=== PATIENT | female | born 1980 | race Caucasian/White ===

== ENCOUNTER → 2018-11-01 | Outpatient (CLI) | payer MEDICARE, OTHER ==
--- NOTE | 2018-11-01 11:31 | US ---
EXAMINATION TYPE: US abdomen complete DATE OF EXAM: 11/01/2018 COMPARISON: NONE CLINICAL HISTORY: R10.84 generalized abdominal pain. Intermittent abdomen pain x couple years EXAM MEASUREMENTS: Liver Length: 17.7 cm Gallbladder Wall: 0.2 cm CBD: 0.7 cm Spleen: 9.5 cm Right Kidney: 11.4 x 4.8 x 4.8 cm Left Kidney: 11.0 x 4.4 x 4.7 cm Pancreas: wnl Liver: measures in upper limits of normal Gallbladder: wnl Evidence for sonographic Severino's sign: no CBD: dilated Spleen: wnl Right Kidney: wnl Left Kidney: wnl Upper IVC: wnl Abd Aorta: wnl Scanned abdomen left of midline: small intramuscular vessel. No suspicious abnormality. The liver is homogenous. The intrahepatic portion of the IVC and proximal abdominal aorta are within normal limits. There is no evidence of cholelithiasis. Common bile duct is unremarkable. The visu alized portions of the pancreas are homogenous. The spleen is unremarkable. Kidneys are symmetric a nd free of hydronephrosis. No renal lesions are seen. IMPRESSION: Unremarkable abdominal ultrasound.
--- NOTE | 2018-11-01 11:41 | US ---
EXAMINATION TYPE: US thyroid st tissue head/neck DATE OF EXAM: 11/01/2018 COMPARISON: NONE CLINICAL HISTORY: R22.0 Swelling/Mass/palpable abnormality head/neck. Neck swelling, difficulty swall owing GLAND SIZE: Right Lobe: 5.7 x 1.9 x 2.1 cm Overall Parenchyma: mildly heterogeneous Left Lobe: 5.5 x 2.0 x 1.8 cm Overall Parenchyma: mildly heterogeneous Isthmus Thickness: 0.4 cm NODULES RIGHT: # of nodules measured on right: 0 LEFT: # of nodules measured on left: 0 ISTHMUS: # of nodules measured in the isthmus: 0 Bilateral neck scanned, no evidence of lymphadenopathy. IMPRESSION: Enlarged mildly heterogeneous gland without any definite nodules seen at this time.
== END | disposition home or self-care (01) ==
LOC: RADUSWWP 09:33 → MERGE 09:40
PROVIDERS: ATTEND Internal Medicine
DX: E04.9 Nontoxic goiter, unspecified (principal); R10.84 Generalized abdominal pain; Z88.0 Allergy status to penicillin; Z88.1 Allergy status to other antibiotic agents
CPT/HCPCS: 76536; 76700

== ENCOUNTER → 2018-11-06 | Outpatient (CLI) | payer MEDICARE | END | disposition home or self-care (01) | LOC: RADMRIMAIN 13:09 → MERGE 13:15 | PROVIDERS: ATTEND Pain Medicine Interventional Pain Medicine | DX: Z53.9 Procedure and treatment not carried out, unspecified reason (principal) ==

== ENCOUNTER → 2019-08-01 | Outpatient (CLI) | payer MEDICARE ==
--- NOTE | 2019-08-01 14:20 | MM ---
Reason for exam: clinical finding. Last mammogram was performed 2 years and 10 months ago. History: Family history of breast cancer in grandmother. Took hormonal contraceptives for 14 years beginning at age 24. Indicated problem(s): lump or thickening in both breasts. Physical Findings: Nurse did not find any significant physical abnormalities on exam. MG 3D Diag Mammo W/Cad DANITA Bilateral CC and MLO view(s) were taken. Prior study comparison: October 05, 2016, bilateral MG 3d screening mammo w/cad. The breast tissue is heterogeneously dense. This may lower the sensitivity of mammography. No suspicious abnormality. No significant new findings when compared with previous films. These results were verbally communicated with the patient and result sheet given to the patient on 08/01/19. ASSESSMENT: Incomplete: need additional imaging evaluation, BI-RAD 0 RECOMMENDATION: Ultrasound of the left breast. (upper outer quadrant)
--- NOTE | 2019-08-01 14:22 | USB ---
Reason for exam: additional evaluation requested from abnormal screening. History: Family history of breast cancer in grandmother. Took hormonal contraceptives for 14 years beginning at age 24. US Breast Limited LT Technologist: Alondra Mcpherson Left limited breast ultrasound including focal area of concern, retroareolar and axilla demonstrates several cystic lesions measuring 0.4 x 0.4 x 0.2cm at 1 o'clock, a 0.5 x 0.5 x 0.4cm at 1 o'clock, 0.3 x 0.3 x 0.2cm at 2 o'clock and 0.5 x 0.6 x 0.5cm at 2 o'clock. These results were verbally communicated with the patient and result sheet given to the patient on 08/01/19. ASSESSMENT: Benign, BI-RAD 2 RECOMMENDATION: Routine screening mammogram of both breasts in 1 year.
== END | disposition home or self-care (01) ==
LOC: RADMAMWWP 07:43
PROVIDERS: ATTEND Internal Medicine
DX: R92.8 Other abnormal and inconclusive findings on diagnostic imaging of breast (principal); N63.0 Unspecified lump in unspecified breast
CPT/HCPCS: 77066; 76642; G0279; 77062

== ENCOUNTER → 2020-11-21 | Outpatient (CLI) | payer MEDICARE ==
--- NOTE | 2020-11-25 10:06 | MM ---
Reason for exam: screening (asymptomatic). Last mammogram was performed 1 year and 4 months ago. History: Family history of breast cancer in grandmother. Took hormonal contraceptives for 14 years beginning at age 24. Physical Findings: A clinical breast exam by your physician is recommended on an annual basis and results should be correlated with mammographic findings. MG 3D Screening Mammo W/Cad Bilateral CC and MLO view(s) were taken. Prior study comparison: August 01, 2019, bilateral MG 3d diag mammo w/cad DANITA. October 05, 2016, bilateral MG 3d screening mammo w/cad. The breast tissue is heterogeneously dense. This may lower the sensitivity of mammography. There is chronic nodularity bilaterally. No significant changes when compared with prior studies. ASSESSMENT: Benign, BI-RAD 2 RECOMMENDATION: Routine screening mammogram of both breasts in 1 year. Patient should continue monthly self breast exams. A negative report should not preclude additional follow up of suspicious palpable abnormalities.
== END | disposition home or self-care (01) ==
LOC: RADMAMWWP 09:19
PROVIDERS: ATTEND Internal Medicine
DX: Z12.31 Encounter for screening mammogram for malignant neoplasm of breast (principal)
CPT/HCPCS: 77063; 77067

== ENCOUNTER 2020-12-30 19:15 | Emergency (ER) | payer MEDICARE ==
[2020-12-30 19:25] VITALS: BP 151/85; PULSE 101; RESP 20; TEMP 98
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
== END 2020-12-30 22:42 | disposition home or self-care (01) ==
LOC: EC 19:15
DX: S05.12XA Contusion of eyeball and orbital tissues, left eye, initial encounter (principal); H53.10 Unspecified subjective visual disturbances; F17.200 Nicotine dependence, unspecified, uncomplicated; W50.0XXA Accidental hit or strike by another person, initial encounter
CPT/HCPCS: 70450; 70486; 72125; 99284

== ENCOUNTER → 2021-10-02 | Outpatient (CLI) | payer MEDICARE ==
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
== END | disposition home or self-care (01) ==
LOC: RADXRMAIN 14:35
PROVIDERS: ATTEND Internal Medicine
DX: R05.9 Cough, unspecified (principal); R06.00 Dyspnea, unspecified
CPT/HCPCS: 71046

== ENCOUNTER → 2022-04-07 | Outpatient (CLI) | payer MEDICARE ==
--- NOTE | 2022-04-07 08:50 | MR ---
EXAMINATION TYPE: MR cspine/tspine/lspine wo con DATE OF EXAM: 04/07/2022 COMPARISON: MRI entire spine May 16, 2018 HISTORY: RADICULOPATHY; M54.2 CERVICALGIA. Pain or weakness in bilateral upper and lower extremities per patient. TECHNIQUE: Multiplanar, multisequence imaging of the cervical, thoracic, and lumbar spine are all per formed without IV contrast. FINDINGS: C-SPINE: FINDINGS: Slight scoliotic curvature on coronal images. Sagittal images of the cervical spine show th e craniocervical junction to remain within normal limits. The cervical and upper thoracic spinal cor d remains normal in course, caliber, and signal. Vertebral alignment is stable and satisfactory on s agittal images. The vertebral body and intravertebral disk heights remain normal. The bone marrow s ignal intensity is within normal limits. Axial images show C2-C3 and C3-C4 levels to remain within normal limits. Axial images at C4-C5 level shows mild right-sided neural foraminal narrowing due to small right fora olga disc protrusion unchanged from prior. Axial images at C5-C6 and C6-C7 levels redemonstrate mild broad based posterior disc protrusions mini genny effacing the anterior thecal sac, patent bilateral neural foramina. Axial images at C7-T1 level appear within normal limits. IMPRESSION: Stable mild multilevel degenerative changes in the cervical spine as detailed above. T-SPINE: FINDINGS: Slight dextroconvex scoliotic curvature redemonstrated. Spinal cord shows normal course, caliber, and signal as it courses the thoracic spine. Vertebral body heights and alignment are stabl e and satisfactory. Bone marrow signal intensity is preserved. Review of the axial images shows no significant spinal canal stenosis or neural foraminal narrowing a t any thoracic level. At T6-T7 there is stable minimal central disc protrusion minimally effacing anterior thecal sac. Neur al foramina remain patent. At T8-T9 there is bilobed paracentral disc protrusion effacing the anterior thecal sac on axial image 14 series 901 slightly worsened on the left paracentral level versus prior. No new disc herniations are evident. Visualized portion of the thorax and upper abdomen show no suspi cious abnormality. IMPRESSION: Stable slight scoliotic curvature. Slightly more prominent disc herniation T8-T9 level. L-SPINE: Slight scoliotic curvature is redemonstrated. Sagittal images of the lumbar spine show vertebral body height to remain satisfactory. Alignment is stable and straightened on sagittal images. The interver tebral discs redemonstrate normal heights and hydration. The conus medullaris remains normal in posi tion and signal ending at mid L1 level. The bone marrow signal intensity is within normal limits. Axial images show no focal disc disease, or facet degenerative change at any lumbar level. There is no spinal canal stenosis, neural foraminal narrowing, or evidence of nerve root compromise. Axial images at T12-L1 through the L3-L4 levels appear within normal limits At L4-5 there is stable mild broad disc bulge minimally encroaching anterior thecal sac. Stable mild facet arthropathy bilaterally. Patent bilateral neural foramina. At L5-S1 there is focal central disc protrusion with mild facet arthropathy redemonstrated but spinal canal is preserved. Neural foramina remain patent bilaterally. No suspicious retroperitoneal findings. IMPRESSION: Slight scoliotic curvature with mild degenerative changes in the lower lumbar spine as de tailed above. No significant degenerative progression from 2018 MRI.
== END | disposition home or self-care (01) ==
LOC: RADMRIMAIN 06:47
PROVIDERS: ATTEND Family Medicine
DX: M47.27 Other spondylosis with radiculopathy, lumbosacral region (principal); M51.17 Intervertebral disc disorders with radiculopathy, lumbosacral region; M51.14 Intervertebral disc disorders with radiculopathy, thoracic region; M50.121 Cervical disc disorder at C4-C5 level with radiculopathy; M41.86 Other forms of scoliosis, lumbar region; M41.83 Other forms of scoliosis, cervicothoracic region; M99.71 Connective tissue and disc stenosis of intervertebral foramina of cervical region
CPT/HCPCS: 72141; 72146; 72148

== ENCOUNTER → 2022-04-28 | Outpatient (CLI) | payer MEDICARE ==
[2022-04-29 00:41] LABS: African American GFR (CKD) 124.7 (60.0-200.0); Albumin 4.4 g/dL (3.8-4.9); Albumin/Globulin Ratio 1.83 (1.60-3.17); Anion Gap 10.1 mmol/L (10.00-18.00); BUN/Creat Ratio 11.43 Ratio (12.00-20.00); Calcium 9.5 mg/dL (8.7-10.3); Carbon Dioxide 23.9 mmol/L (20.0-27.5); Globulin 2.4 g/dL (1.6-3.3); Non-African American GFR(CKD) 107.6 (60.0-200.0); Potassium 3.9 mmol/L (3.5-5.5); Total Bilirubin 0.4 mg/dL (0.30-1.20); Total Protein 6.8 g/dL (6.2-8.2)
== END | disposition home or self-care (01) ==
LOC: LABWHC1 14:10
PROVIDERS: ATTEND Nurse Practitioner Family
DX: B18.2 Chronic viral hepatitis C (principal)
CPT/HCPCS: 36415; 80053; 82105; 87522

== ENCOUNTER → 2022-05-06 | Outpatient (CLI) | payer MEDICARE ==
--- NOTE | 2022-05-06 09:12 | US ---
EXAMINATION TYPE: US liver DATE OF EXAM: 05/06/2022 COMPARISON: Ultrasound abdomen November 01, 2018 CLINICAL HISTORY: B18.2 CHRONIC VIRAL HEPATITIS C. Recent diagnosis of Hepatitis TECHNIQUE: Multiple sonographic images of the right upper quadrant are obtained. FINDINGS: EXAM MEASUREMENTS: Liver Length: 18.7 cm Gallbladder Wall: 0.1 cm CBD: 0.7 cm Right Kidney: 10.2 x 4.8 x 4.0 cm Pancreas: wnl Liver: wnl Gallbladder: wnl Evidence for sonographic Severino's sign: neg CBD: Minimally dilated versus upper limits of normal Right Kidney: No hydronephrosis or masses seen Slight prominence of common bile duct unchanged from 2019 study. IMPRESSION: No intrahepatic ductal dilatation. No concerning focal intrahepatic mass.
== END | disposition home or self-care (01) ==
LOC: RADUSWWP 07:36
PROVIDERS: ATTEND Internal Medicine Gastroenterology
DX: B18.2 Chronic viral hepatitis C (principal)
CPT/HCPCS: 76705

== ENCOUNTER → 2022-07-21 | Outpatient (CLI) | payer MEDICARE ==
--- NOTE | 2022-07-21 13:04 | MM ---
Reason for Exam: Screening (asymptomatic). Last mammogram was performed 1 year(s) and 7 month(s) ago. Patient History: Menarche at age 9. First Full-Term at age 17. Currently using Hormonal Contraceptives, beginning at age 24 for 14 years. Maternal grandmother had breast cancer. Risk Values: Muna 5 year model risk: 0.5%. NCI Lifetime model risk: 8.0%. Prior Study Comparison: 09/20/2006 Bilateral Diagnostic Mammogram, [facility]. 09/20/2006 Right Diagnostic Ultrasound, [facility]. 10/05/2016 Bilateral Screening Mammogram, [facility]. 08/01/2019 Bilateral Diagnostic Mammogram, [facility]. 08/01/2019 Left Diagnostic Ultrasound, [facility]. 11/21/2020 Bilateral Screening Mammogram, [facility]. Tissue Density: The breast tissue is heterogeneously dense. This may lower the sensitivity of mammography. Findings: Analyzed By CAD. There is no suspicious group of microcalcifications or new suspicious mass in either breast. Overall Assessment: Negative, BI-RAD 1 Management: Screening Mammogram of both breasts in 1 year. A clinical breast exam by your physician is recommended on an annual basis and results should be correlated with mammographic findings. Electronically signed and approved by: Hunter Aguilar M.D. Radiologis
== END | disposition home or self-care (01) ==
LOC: RADMAMWWP 10:00
PROVIDERS: ATTEND Family Medicine
DX: Z12.31 Encounter for screening mammogram for malignant neoplasm of breast (principal); Z80.3 Family history of malignant neoplasm of breast
CPT/HCPCS: 77063; 77067

== ENCOUNTER → 2023-09-12 | Outpatient (CLI) | payer OTHER ==
--- NOTE | 2023-09-12 16:22 | CT ---
EXAMINATION TYPE: CT soft tissue neck w con DATE OF EXAM: 09/12/2023 COMPARISON: None HISTORY: Enlarged lymph nodes, one is palpable and marked by a radiopaque BB on left side. CT DLP: 416.6 mGycm CONTRAST: Patient injected with 100ml mL of Isovue 300. TECHNIQUE: Axial images at 3 mm thick sections. Reconstructed images in the coronal plane and sagitt al plane are reviewed. FINDINGS: Limited CT sections are obtained the lung apices. The lung apices appear clear. Emphysemat ous changes are evident. Tracheobronchial tree appears normal. CT neck: The torus tubarius and fossa of Rosenmuller are normal. Perfume Maker spaces are normal. Para nasal sinuses and mastoid air cells are clear. Parotid glands appear normal and symmetrical. Submandibular glands, are normal. Parapharyngeal spac es are normal. No suspicious adenopathy is evident. Radiopaque marker wolfe the left submandibular level. No underly ing suspicious adenopathy is evident. There is a small lymph node in the left jugulodigastric region. The hypopharynx appears within normal limits. Vocal cord level appear symmetrical. Thyroid as visualized is normal. Osseous structures are normal. IMPRESSION: 1. No suspicious abnormality at the level marked by the BB left neck
== END | disposition home or self-care (01) ==
LOC: RADCTMAIN 14:17
PROVIDERS: ATTEND Otolaryngology
DX: R59.0 Localized enlarged lymph nodes (principal)
CPT/HCPCS: 70491; Q9967

== ENCOUNTER 2023-11-27 20:23 | Emergency (ER) | payer OTHER ==
[2023-11-27 21:04] VITALS: BP 156/100; PULSE 117; RESP 20; TEMP 98.8
--- NOTE | 2023-11-27 21:58 | ED ---
ENT HPI - General Chief complaint: ENT Stated complaint: Parasite Time Seen by Provider: 11/27/23 21:14 Source: patient Mode of arrival: ambulatory Limitations: no limitations - History of Present Illness Initial comments: 42-year-old female presenting with chief complaint of "there is a worm in my nose". Patient states that for a few weeks she has felt what seems to be a worm moving around in her nostrils. She states that sometimes she is able to grab this worm she describes, but is unable to remove it. She has not seen what she assumes to be worm but knows what it is because "I have felt it". Patient states that she had a sinus infection 3 weeks ago, no current sinus pain or pressure or purulent discharge. Patient states that she saw something moving under that skin on her cheek, "it was moving across my face". She denies any cocaine use or snorting of other drugs. - Related Data Allergies Allergy/AdvReac Type Severity Reaction Status Date / Time Penicillins Allergy Dyspnea Verified 11/27/23 20:35 Review of Systems ROS Statement: Those systems with pertinent positive or pertinent negative responses have been documented in the HPI. ROS Other: All systems not noted in ROS Statement are negative. Past Medical History Past Medical History: No Reported History History of Any Multi-Drug Resistant Organisms: None Reported Past Surgical History: No Surgical Hx Reported Past Psychological History: No Psychological Hx Reported Smoking Status: Current every day smoker Past Alcohol Use History: None Reported Past Drug Use History: None Reported General Exam Limitations: no limitations General appearance: alert, in no apparent distress Head exam: Present: atraumatic, normocephalic Eye exam: Present: normal appearance, EOMI ENT exam: Present: other (Patient has a large scab to the inside of the left nostril, present on the more lateral side of the nostril. Right nostril is clear no abnormality seen) Neck exam: Present: normal inspection. Absent: meningismus Respiratory exam: Absent: respiratory distress Neurological exam: Present: alert, oriented X3 Skin exam: Present: warm, dry Course Vital Signs 11/27/23 20:34 Temperature 98.8 F Pulse Rate 117 H Respiratory 20 Rate Blood Pressure 156/100 O2 Sat by Pulse 100 Oximetry Medical Decision Making - Medical Decision Making Was pt. sent in by a medical professional or institution (, PA, DIRECTOR BUSINESS TRAVEL, urgent care, hospital, or correction...) When possible be specific @ -No Did you speak to anyone other than the patient for history (EMS, parent, family, police, friend...)? What history was obtained from this source @ -No Did you review nursing and triage notes (agree or disagree)? Why? @ -I reviewed and agree with nursing and triage notes Were old charts reviewed (outside hosp., previous admission, EMS record, old EKG, old radiological studies, urgent care reports/EKG's, correction records)? Report findings @ -No old charts were reviewed Differential Diagnosis (chest pain, altered mental status, abdominal pain women, abdominal pain men, vaginal bleeding, weakness, fever, dyspnea, syncope, headache, dizziness, GI bleed, back pain, seizure, CVA, palpatations, mental health, musculoskeletal)? @ -Differential includes foreign body, sinus infection, rhinorrhea, psychosis, this is not an all-inclusive list EKG interpreted by me (3pts min.). @ -As above X-rays interpreted by me (1pt min.). @ -None done CT interpreted by me (1pt min.). @ -None done U/S interpreted by me (1pt. min.). @ -None done What testing was considered but not performed or refused? (CT, X-rays, U/S, labs)? Why? @ -None What meds were considered but not given or refused? Why? @ -None Did you discuss the management of the patient with other professionals (professionals i.e. , PA, DIRECTOR BUSINESS TRAVEL, lab, RT, psych nurse, psychologist social, zipper setter, teacher, information systems security officer, shoe parts caser)? Give summary @ -No Was smoking cessation discussed for >3mins.? @ -No Was critical care preformed (if so, how long)? @ -No Were there social determinants of health that impacted care today? How? (Homelessness, low income, unemployed, alcoholism, drug addiction, transportation, low edu. Level, literacy, decrease access to med. care, correction, rehab)? @ -No Was there de-escalation of care discussed even if they declined (Discuss DNR or withdrawal of care, Hospice)? DNR status @ -No What co-morbidities impacted this encounter? (DM, HTN, Smoking, COPD, CAD, Cancer, CVA, ARF, Chemo, Hep., AIDS, mental health diagnosis, sleep apnea, morbid obesity)? @ -None Was patient admitted / discharged? Hospital course, mention meds given and route, prescriptions, significant lab abnormalities, going to OR and other pertinent info. @ -42-year-old female presenting with chief complaint of "there is a worm in my nose". She states that this has been ongoing for few weeks. On examination I see a large scab to the inside of the left nostril. I see no evidence of any foreign body or organic material. I did attempt to tug at the scab with forceps to confirm that this was in fact a scab and not some type of foreign body, part of the scab was removed with no bleeding. I did also remove some mucus from the nostril. I explained to the patient that I did not see any evidence of foreign body inside of her nose. Patient then repeatedly was causing digital trauma to the inside of her left nostril in an attempt to show me what she was talking about. Patient repeatedly pointed at the scab on the inside of her nose stating that that was the "worm" she was talking about. I explained to the patient that I am not identifying any kind of worm or other foreign body inside of the nostril after an extensive examination of the nostril. Patient is agitated and yelling in the department. She is discharged and provided with options for PCP to follow-up with. Report back to ER with any new or worsening symptoms. Discussed return parameters and answered all questions. I discussed this case in detail with my attending Dr. Crao Undiagnosed new problem with uncertain prognosis? @ -No Drug Therapy requiring intensive monitoring for toxicity (Heparin, Nitro, Insulin, Cardizem)? @ -No Were any procedures done? @ -No Diagnosis/symptom? @ -Nasal drainage, scab to the nostril Acute, or Chronic, or Acute on Chronic? @ -Acute Uncomplicated (without systemic symptoms) or Complicated (systemic symptoms)? @ -Uncomplicated Side effects of treatment? @ -No Exacerbation, Progression, or Severe Exacerbation? @ -No Poses a threat to life or bodily function? How? (Chest pain, [place], [place], pneumonia, PE, COPD, DKA, ARF, appy, cholecystitis, CVA, Diverticulitis, Homicidal, Suicidal, threat to staff... and all critical care pts) @ -No Disposition Clinical Impression: Nasal drainage Disposition: HOME SELF-CARE Condition: Good Instructions (If sedation given, give patient instructions): Rhinosinusitis (ED) Additional Instructions: Follow-up with PCP. Report back to ER with any new or worsening symptoms. Is patient prescribed a controlled substance at d/c from ED?: No Referrals: None,Stated [Primary Care Provider] - 1-2 days Benjy Acuña MD [STAFF PHYSICIAN] - 1-2 days Sahil Chan MD [STAFF PHYSICIAN] - 1-2 days Time of Disposition: 21:57
== END 2023-11-27 22:23 | disposition home or self-care (01) ==
LOC: EC 20:23
DX: R09.82 Postnasal drip (principal); F17.200 Nicotine dependence, unspecified, uncomplicated; Z88.0 Allergy status to penicillin
CPT/HCPCS: 99282

== ENCOUNTER 2023-12-01 09:25 | Emergency (ER) | payer OTHER ==
[2023-12-01 10:09] VITALS: RESP 18
--- NOTE | 2023-12-01 10:27 | ED ---
ENT HPI - General Chief complaint: ENT Stated complaint: ENT Time Seen by Provider: 12/01/23 10:00 Source: patient, RN notes reviewed Mode of arrival: ambulatory Limitations: no limitations - History of Present Illness Initial comments: This is a 42-year-old female presents to the ED within her nasal cavity and mouth. She states that she has had symptoms of a sinus infection since [place] cwith intermittent congestion, rhinorrhea, and productive cough. She states that she came to the emergency department a few days ago to [facility] ED. Patient went to her primary care provider yesterday where she was prescribed an antifungal drug, methimazole, and instructed to follow-up in 10 days after the medication course is completed. Patient is requesting further imaging at this time. Fevers, chills, body aches, shortness of breath, chest pain or pressure. . - Related Data Previous Rx's Medication Instructions Recorded Fluticasone Nasal [place] [Flonase 2 spr EA NOSTRIL DAILY #16 gm 12/01/23 Nasal [place]] Allergies Allergy/AdvReac Type Severity Reaction Status Date / Time Penicillins Allergy Dyspnea Verified 12/01/23 09:32 Review of Systems ROS Statement: Those systems with pertinent positive or pertinent negative responses have been documented in the HPI. ROS Other: All systems not noted in ROS Statement are negative. Past Medical History Past Medical History: No Reported History History of Any Multi-Drug Resistant Organisms: None Reported Past Surgical History: No Surgical Hx Reported Past Psychological History: No Psychological Hx Reported Smoking Status: Current every day smoker Past Alcohol Use History: None Reported Past Drug Use History: None Reported General Exam Limitations: no limitations General appearance: alert, in no apparent distress Head exam: Present: atraumatic, normocephalic, normal inspection Eye exam: Present: normal appearance, PERRL, EOMI. Absent: scleral icterus, conjunctival injection, periorbital swelling ENT exam: Present: normal exam, mucous membranes moist Neck exam: Present: normal inspection. Absent: tenderness, meningismus, lymphadenopathy Respiratory exam: Present: normal lung sounds bilaterally. Absent: respiratory distress, wheezes, rales, rhonchi, stridor Cardiovascular Exam: Present: regular rate, normal rhythm, tachycardia, normal heart sounds. Absent: systolic murmur, diastolic murmur, rubs, gallop, clicks GI/Abdominal exam: Present: soft, normal bowel sounds. Absent: distended, tenderness, guarding, rebound, rigid Extremities exam: Present: normal inspection, full ROM, normal capillary refill. Absent: tenderness, pedal edema, joint swelling, calf tenderness Back exam: Present: normal inspection Neurological exam: Present: alert, oriented X3, CN II-XII intact Psychiatric exam: Present: normal affect, normal mood Skin exam: Present: warm, dry, intact, normal color. Absent: rash Course Vital Signs 12/01/23 09:27 Temperature 98.0 F Pulse Rate 112 H Respiratory 18 Rate Blood Pressure 161/120 O2 Sat by Pulse 99 Oximetry Medical Decision Making - Medical Decision Making Was pt. sent in by a medical professional or institution (DINO Slois, TYPESETTING MACHINE OPERATOR/TENDER, urgent care, hospital, or penitentiary...) When possible be specific @ -No Did you speak to anyone other than the patient for history (EMS, parent, family, police, friend...)? What history was obtained from this source @ -No Did you review nursing and triage notes (agree or disagree)? Why? @ -I reviewed and agree with nursing and triage notes Were old charts reviewed (outside hosp., previous admission, EMS record, old EKG, old radiological studies, urgent care reports/EKG's, penitentiary records)? Report findings @ -No old charts were reviewed Differential Diagnosis (chest pain, altered mental status, abdominal pain women, abdominal pain men, vaginal bleeding, weakness, fever, dyspnea, syncope, headache, dizziness, GI bleed, back pain, seizure, CVA, palpatations, mental health, musculoskeletal)? @ -, Rhinorrhea, rhinosinusitis, parasitic infection EKG interpreted by me (3pts min.). @ -None X-rays interpreted by me (1pt min.). @ -None done CT interpreted by me (1pt min.). @ -None done U/S interpreted by me (1pt. min.). @ -None done What testing was considered but not performed or refused? (CT, X-rays, U/S, labs)? Why? @ -None What meds were considered but not given or refused? Why? @ -None Did you discuss the management of the patient with other professionals (professionals i.e. DION Solis, TYPESETTING MACHINE OPERATOR/TENDER, lab, RT, psych nurse, administrator social welfare, remediation technician, teacher, gift officer, rehabilitation caseworker)? Give summary @ -No Was smoking cessation discussed for >3mins.? @ -No Was critical care preformed (if so, how long)? @ -No Were there social determinants of health that impacted care today? How? (Homelessness, low income, unemployed, alcoholism, drug addiction, transportation, low edu. Level, literacy, decrease access to med. care, half-way, rehab)? @ -No Was there de-escalation of care discussed even if they declined (Discuss DNR or withdrawal of care, Hospice)? DNR status @ -No What co-morbidities impacted this encounter? (DM, HTN, Smoking, COPD, CAD, Cancer, CVA, ARF, Chemo, Hep., AIDS, mental health diagnosis, sleep apnea, morbid obesity)? @ -None Was patient admitted / discharged? Hospital course, mention meds given and route, prescriptions, significant lab abnormalities, going to OR and other pertinent info. @ -Discharged. 42-year-old thoughts of a parasitic infection within the nasal cavity. Discussion with patient, she presented to the ED on 11/26, states that she was dismissed and no testing was done. Long discussion with patient at bedside that she should continue with the medendazole has prescribed from her primary care office and follow up as scheduled in 10 days for re-evaluation. Patient called her primary care office where he spoke to the physician biology laboratory assistant. Both her and I do not have clinical judgement for further testing or imaging at this time. Recommend that patient continue use of the medication as prescribed and follow-up in the next 10 days as scheduled. On physical exam there were no notable signs of a parasitic infection, no rashes, normal mucous membranes. Patient denies travel outside of the country within the last 6 months, states that she has 2 dogs at home. Patient will be prescribed flonase to aid in decreasing inflammation of the nasal cavity. She is agreeable with this. Discussed with Dr. Smith Undiagnosed new problem with uncertain prognosis? @ -No Drug Therapy requiring intensive monitoring for toxicity (Heparin, Nitro, Insulin, Cardizem)? @ -No Were any procedures done? @ -No Diagnosis/symptom? @ -sinusitis Acute, or Chronic, or Acute on Chronic? @ -acute Uncomplicated (without systemic symptoms) or Complicated (systemic symptoms)? @ -uncomplicated Side effects of treatment? @ -No Exacerbation, Progression, or Severe Exacerbation? @ -No Poses a threat to life or bodily function? How? (Chest pain, [place], [place], pneumonia, PE, COPD, DKA, ARF, appy, cholecystitis, CVA, Diverticulitis, Homicidal, Suicidal, threat to staff... and all critical care pts) @ -No Disposition Clinical Impression: Sinusitis Narrative: Please return to the Emergency Department if symptoms worsen or any other concerns. Continue mebendazole as prescribed from your primary care provider and follow-up as scheduled. Disposition: HOME SELF-CARE Condition: Good Instructions (If sedation given, give patient instructions): Sinusitis (ED) Prescriptions: Fluticasone Nasal [place] [Flonase Nasal [place]] 2 spr EA NOSTRIL DAILY #16 gm Is patient prescribed a controlled substance at d/c from ED?: No Referrals: None,Stated [Primary Care Provider] - 1-2 days Forms: Personal Senior Statistician, Area PCPs Time of Disposition: 10:26
[2023-12-01 11:33] VITALS: BP 159/89; PULSE 101; TEMP 98
== END 2023-12-01 10:33 | disposition home or self-care (01) ==
LOC: EC 09:25
DX: J32.9 Chronic sinusitis, unspecified (principal); F17.200 Nicotine dependence, unspecified, uncomplicated; Z88.0 Allergy status to penicillin
CPT/HCPCS: 99283

== ENCOUNTER → 2024-05-07 | Outpatient (CLI) | payer OTHER ==
--- NOTE | 2024-05-07 09:41 | MM ---
Reason for Exam: Clinical finding. Last mammogram was performed 1 year(s) and 10 month(s) ago. Indicated Problems: Lump or thickening of the right side (size 5) for 15 Year(s). Patient History: Menarche at age 9. First Full-Term at age 17. Currently using Hormonal Contraceptives, beginning at age 24 for 14 years. Maternal grandmother had breast cancer. Risk Values: Muna 5 year model risk: 0.6%. NCI Lifetime model risk: 7.8%. Prior Study Comparison: 09/20/2006 Bilateral Diagnostic Mammogram, [facility]. 08/01/2019 Bilateral Diagnostic Mammogram, [facility]. 11/21/2020 Bilateral Screening Mammogram, [facility]. 07/21/2022 Bilateral MG 3D screening mammo w/cad, [facility]. Tissue Density: The breasts are heterogeneously dense, which may obscure small masses. Findings: Analyzed By CAD. The pattern is symmetrical. No discrete abnormality is evident. The area questioned on the field is not within the mammographic findings. Ultrasound can be performed for the palpable region. No suspicious groups of microcalcifications, spiculated or lobular masses, architectural distortion or other secondary signs of malignancy are mammographically apparent. Overall Assessment: Incomplete: need additional imaging evaluation, BI-RAD 0 Management: Diagnostic Breast Ultrasound of the right breast. A negative mammogram report should not preclude additional follow up of suspicious palpable abnormalities. Patient should continue monthly self breast exam. A clinical breast exam by your physician is recommended on an annual basis and results should be correlated with mammographic findings. Note on Muna scores and lifetime risk: 1. A Muna score greater than 3% is considered moderate risk. If this is the case, consider specialist referral to assess eligibility for a risk reducing agent. 2. If overall lifetime risk for the development of breast cancer is 20% or higher, the patient may qualify for future screening with alternating mammogram and breast MRI. [facility], , 05/07/2024 9:38 AM. Electronically signed and approved by: Arun Skinner D.O. Radiologis
--- NOTE | 2024-05-07 10:00 | USB ---
Reason for Exam: Clinical finding. Patient History: Menarche at age 9. First Full-Term at age 17. Currently using Hormonal Contraceptives, beginning at age 24 for 14 years. Maternal grandmother had breast cancer. Risk Values: Muna 5 year model risk: 0.6%. NCI Lifetime model risk: 7.8%. Technique: Method: Targeted. Prior Study Comparison: 08/01/2019 Bilateral Diagnostic Mammogram, [facility]. 11/21/2020 Bilateral Screening Mammogram, [facility]. 07/21/2022 Bilateral MG 3D screening mammo w/cad, [facility]. Findings: The area of palpable concern of the right breast, the axilla of the right breast and the retroareolar of the right breast were scanned. No solid or cystic masses are identified. No discrete abnormality at the palpable region medial right breast is evident. Axillary regions are normal. A couple of normal-appearing nodes without thickened cortex are present. Overall Assessment: Negative, BI-RAD 1 Management: Screening Mammogram of both breasts in 1 year. A clinical breast exam by your physician is recommended on an annual basis and results should be correlated with mammographic findings. This exam should not preclude additional follow-up of suspicious palpable abnormalities. Results were given to the patient verbally at the time of exam. [facility], , 05/07/2024 9:56 AM. Electronically signed and approved by: Arun Skinner D.O. Radiologis
== END | disposition home or self-care (01) ==
LOC: RADMAMWWP 09:11
PROVIDERS: ATTEND Family Medicine
DX: N63.10 Unspecified lump in the right breast, unspecified quadrant (principal); N63.20 Unspecified lump in the left breast, unspecified quadrant; Z80.3 Family history of malignant neoplasm of breast; R92.333 Mammographic heterogeneous density, bilateral breasts
CPT/HCPCS: 77062; 77066

== ENCOUNTER → 2024-07-06 | Outpatient (CLI) | payer MEDICARE ==
--- NOTE | 2024-07-07 19:36 | US ---
EXAMINATION TYPE: US thyroid st tissue head/neck DATE OF EXAM: 07/06/2024 COMPARISON: NONE CLINICAL INDICATION: Female, 43 years old with history of E04.1 NONTOX SINGLE THY NOD K21.9 GERD; thy roid nodule on outside CT TECHNIQUE: Grayscale and color Doppler imaging of the thyroid gland. FINDINGS: GLAND SIZE: Right Lobe: 5.7x2.1x1.6 cm Overall Parenchyma: homogeneous Left Lobe: 5.3x2.6x2.3 cm Overall Parenchyma: homogeneous Isthmus Thickness: 0.5 cm NODULES RIGHT: # of nodules measured on right: 0 LEFT: # of nodules measured on left: 1 1. 0.6 X 0.4 x 0.4 cm, lower mid, solid or almost completely solid, isoechoic nodule, which is wide r than tall, with ill-defined margins, without echogenic foci. TR 3 ISTHMUS: # of nodules measured in the isthmus: 0 Bilateral neck scanned, no evidence of lymphadenopathy. IMPRESSION: 1 mildly suspicious subcentimeter nodule left lobe thyroid. 2017 ACR TI-RADS LEVEL: TR-RADS 3 - Mildly Suspicious: Follow if > 1.5 cm, FNA if > 2.5 cm *Highest TI-RADS level nodule reported [email or web address] [facility], , 07/07/2024 7:34 PM
== END | disposition home or self-care (01) ==
LOC: RADUSWWP 15:15
PROVIDERS: ATTEND Otolaryngology
DX: E04.1 Nontoxic single thyroid nodule (principal); K21.9 Gastro-esophageal reflux disease without esophagitis
CPT/HCPCS: 76536

== ENCOUNTER → 2024-07-09 | Outpatient (CLI) | payer MEDICARE ==
--- NOTE | 2024-07-09 08:52 | FL ---
EXAMINATION TYPE: FL barium swallow DATE OF EXAM: 07/09/2024 8:28 AM COMPARISON: None. CLINICAL INDICATION:Female, 43 years old with history of K21.9 GERD; PHH, TECHNIQUE: The procedure was explained and patient history elicited. All patient questions were ans wered prior to start of procedure. Multiple spot fluoroscopic images of the esophagus were obtained a fter the oral ingestion of effervescent crystals and liquid barium as the contrast agent. Fluoroscopic time:27 sec Fluoroscopic images:0 Radiographs taken: 135 DAP: Not reported [id number] FINDINGS: The esophagus demonstrates normal primary and secondary peristalsis. The esophageal mucosa is smooth without evidence of focal stricture, ulceration, or abnormal outpouching. No gastroesophageal reflu x disease was identified. Tertiary contractions are present. IMPRESSION: Few tertiary contractions suggestive of some degree of esophageal dysmotility. Otherwise free flow of contrast through the esophagus. [facility], , 07/09/2024 8:50 AM
== END | disposition home or self-care (01) ==
LOC: RADFLMAIN 07:42
PROVIDERS: ATTEND Otolaryngology
DX: J43.9 Emphysema, unspecified (principal); K21.9 Gastro-esophageal reflux disease without esophagitis; E04.1 Nontoxic single thyroid nodule
CPT/HCPCS: 74220

== ENCOUNTER → 2024-08-09 | Outpatient (CLI) | payer MEDICARE ==
--- NOTE | 2024-08-10 11:42 | NM ---
EXAMINATION TYPE: NM thyroid image w uptake DATE OF EXAM: 08/10/2024 COMPARISON: NONE CLINICAL INDICATION: Female, 43 years old with history of E04.1 L THY NODULE; TECHNIQUE: Thyroid iodine uptake is calculated and images performed after the oral administration of 315 uCi 1-123 Capsule. FINDINGS: There is normal distribution of activity throughout the gland. The 4 hour iodine uptake is calculated at 13.9% (normal range 8-14%). The 24-hour iodine uptake is calculated at 32.3% (normal r araceli 15-35%). IMPRESSION: Normal thyroid scan and uptake. [facility], , 08/10/2024 11:40 AM
== END | disposition home or self-care (01) ==
LOC: RADNMMAIN 08:31
PROVIDERS: ATTEND Family Medicine
DX: E04.1 Nontoxic single thyroid nodule (principal)
CPT/HCPCS: 78014; A9516

== ENCOUNTER → 2024-11-22 | Outpatient (CLI) | payer MEDICARE ==
--- NOTE | 2024-11-22 14:11 | US ---
EXAMINATION TYPE: US axilla LT DATE OF EXAM: 11/22/2024 COMPARISON: NONE CLINICAL INDICATION: Female, 43 years old with history of R22.30 LUMP IN AXILLA; Lump left axilla TECHNIQUE: Scanned area of concern left axilla FINDINGS: There appear to be 2 lymph nodes in the left axilla, #1: 1.9 x 1.2 x 1.0 cm. Cortex: 2 mm. #2: 1.5 x 1.5 x 0.8 cm. Cortex: 4 mm. IMPRESSION: Lymph nodes in the left axilla one has prominent cortex up to 3 mm. Consider short-term follow-up in 3-6 months. Correlate with mammographic findings. [facility], , 11/22/2024 2:08 PM
== END | disposition home or self-care (01) ==
LOC: RADUSWWP 13:24
PROVIDERS: ATTEND Family Medicine
DX: R22.32 Localized swelling, mass and lump, left upper limb (principal)

== ENCOUNTER → 2025-01-01 | Outpatient (CLI) | payer MEDICARE, OTHER ==
--- NOTE | 2025-01-01 13:54 | CT ---
EXAMINATION TYPE: CT chest w con DATE OF EXAM ORDERED: 01/01/2025 CLINICAL INDICATION: Female, 44 years old with history of R22.2 LOCALIZED SWELLING, MASS AND LUMP, TR UNK, history of tobacco use, Lung cancer screening CT DLP: [address] CTDI: mGy Automated exposure control for dose reduction was used. Comparison: None TECHNIQUE: Multiple axial images obtained through the thorax following IV contrast. FINDINGS: There are moderate emphysematous changes with an upper lobe predominance. There is a 2 mm groundglass nodule in the left lower lobe There is no airspace consolidation or abnormal interstitial density. There is no mediastinal, hilar o r axillary adenopathy. There is no pleural effusion, pleural thickening or pneumothorax. No focal osseous lesions are seen. There are no soft tissue abnormalities in the chest wall. Beneath the BB marker, no mass or discrete fluid collection is seen. Limited scans the upper abdomen reveals no gross abnormality IMPRESSION: 1. No chest wall mass or discrete fluid collection. 2. Moderate emphysematous changes with an upper lobe predominance. 3. 2 mm groundglass nodule in the left lower lobe. Routine screening at yearly intervals is recommend ed. 4. No acute cardiopulmonary disease. [facility], , 01/01/2025 1:52 PM
== END | disposition home or self-care (01) ==
LOC: RADCTMAIN 13:09
PROVIDERS: ATTEND Family Medicine
DX: R91.1 Solitary pulmonary nodule (principal); J43.9 Emphysema, unspecified
CPT/HCPCS: 71260; Q9967